=== PATIENT | male | born 1975 | race Two or more races ===

== ENCOUNTER 2018-06-26 16:56 | Emergency (ER) | payer OTHER ==
[~2018-06-26] VITALS: Ht 185.4 cm; Wt 90.7 kg
--- NOTE | 2018-06-26 16:56 | NUR ---
DR GUTIERREZ AT THE BEDSIDE FOR MSE.
[2018-06-26] MEDS ORDERED: ONDANSETRON 4 MG/2 ML VIAL IV ONE (17:00)
[2018-06-26] MEDS ORDERED: IV NORMAL SALINE 1000 ML BAG IV ONE (17:00)
[2018-06-26] MEDS ORDERED: ONDANSETRON 4 MG/2 ML VIAL ONE ×2 (17:04→18:11)
[2018-06-26 17:15] LABS: EOSINOPHILS % (AUTO) 0.1 % (0.0-7.0); HEMATOCRIT 39.1 % (36.7-47.1); HEMOGLOBIN 13.5 g/dL (12.5-16.3); LYMPHOCYTES # (AUTO) 0.2 K/uL (20.0-40.0); MEAN CORPUSCULAR VOLUME 84.9 fL (73.0-96.2); NEUTROPHILS # (AUTO) 10.2 K/uL (1.8-8.9); WHITE BLOOD COUNT (AUTO) 10.6 K/uL (3.6-10.2)
[2018-06-26 17:17] LABS: CREATININE 1.5 mg/dL (0.6-1.3); POTASSIUM 3.7 mmol/L (3.5-5.1)
[2018-06-26 17:18] LABS: LYMPHOCYTES % (AUTO) 1.6 % (20.5-51.5); MEAN CORPUSCULAR HEMOGLOBIN 29.4 uug (23.8-33.4); MEAN CORPUSCULAR HGB CONC 35 g/dL (32.5-36.3); MONOCYTES # (AUTO) 0.2 K/uL (2.0-10.0); NEUTROPHILS % (AUTO) 96.3 % (38.5-71.5); PLATELET COUNT (AUTO) 143 K/uL (152-348)
[2018-06-26 17:23] LABS: BILIRUBIN,DIRECT 0.3 mg/dL (0.0-0.2); BILIRUBIN,TOTAL 4.3 mg/dL (0.2-1.0); TOTAL PROTEIN, SERUM 6.3 g/dL (6.4-8.2)
[2018-06-26 17:33] LABS: BAND % (MANUAL) 1 % (0-10); LYMPHOCYTES % (MANUAL) 3 % (20-40); NEUTROPHILS % (MANUAL) 96 % (42-75)
--- NOTE | 2018-06-26 18:04 | NUR ---
PT RESTING IN BED, FAMILY AT THE BEDSIDE.
[2018-06-26] MEDS ORDERED: ONDANSETRON IV *ER 4 MG/2 ML VIAL IV ONE (18:15)
[2018-06-26] MEDS ORDERED: ONDANSETRON ODT 4 MG TAB.RAPDIS ONE (18:29)
[2018-06-26] MEDS ORDERED: ONDANSETRON ODT 4 MG TAB.RAPDIS SL ONE ×2 (18:30)
--- NOTE | 2018-06-26 18:44 | NUR ---
IV removed. Catheter intact and site benign. Pressure and 4x4 gauze applied to site. No bleeding noted.
[2018-06-26 18:45] VITALS: BP 103/72
--- NOTE | 2018-06-26 18:46 | NUR ---
Patient discharged to home in stable conditon. Written and verbal after care instructions given. Patient verbalizes understanding of instructions. Pt left ER w/ steady gait accompained by family.
== END 2018-06-26 18:47 | disposition home or self-care (01) ==
LOC: ER 16:58
DX: K52.9 Noninfective gastroenteritis and colitis, unspecified (principal)
CPT/HCPCS: 36415; 80048; 80076; 83690; 85025; 93005; 96361; 96374; 96376; 99284; J2405 ×2; A4663; J7030; Q0162